=== PATIENT | male | born 1975 | race Two or more races ===

== ENCOUNTER 2016-04-14 14:36 | Inpatient (IN) | payer MEDICAID ==
[~2016-04-14] VITALS: Ht 172.7 cm; Wt 109.7 kg
[2016-04-14] MEDS ORDERED: ACETAMINOPHEN 325 MG TAB PO ONE (14:45)
[2016-04-14 16:00] LABS: Basophils # (auto) 0 uL; Basophils % (auto) 0.3 % (0.0-2.0); DEFINITIVE VIEW TRANSMISSION; Eosinophils # (auto) 0 uL; Eosinophils % (auto) 0.1 % (0.0-7.0); Hematocrit 41.6 % (41.0-53.0); Hemoglobin 13.3 g/dL (13.5-17.5); Lymphocytes # (auto) 1.8 uL; Lymphocytes % (auto) 19.7 % (10.0-50.0); Mean Corpuscular Hemoglobin 26.1 pg (28.0-32.0); Mean Corpuscular Hgb Conc. 31.9 g/dL (32.0-36.0); Mean Corpuscular Volume 81.7 fL (80.0-100.0); Mean Platelet Volume 9.1 fL (7.4-10.4); Monocytes % (auto) 10.7 % (0.0-12.0); Neutrophils # (auto) 6.5 uL; Neutrophils % (auto) 69.2 % (37.0-80.0); Platelet Count (auto) 242 10^3/uL (140-450); Red Cell Distribution Width 14.8 % (11.6-16.0); White Blood Cell 9.4 10^3/uL (4.4-10.8)
[2016-04-14 16:09] LABS: Albumin 2.6 g/dL (3.4-5.0); BUN/Creatinine Ratio 12.1; Potassium 4.2 mmol/L (3.5-5.1)
[2016-04-14 16:12] LABS: Bilirubin, Total 1.3 mg/dL (0.2-1.0); Total Protein 8.4 g/dL (6.4-8.2)
[2016-04-14 17:34] LABS: Hypochromia Slight; Platelet Estimate Adequate
[2016-04-15] MEDS ORDERED: SODIUM CHLORIDE 0.9% 1,000 ML IV ONE ×2 (03:30→05:30)
[2016-04-15] MEDS ORDERED: IPRATROPIUM BROM 0.5 MG/2.5ML INH SOL NEB ONE (03:45)
[2016-04-15] MEDS ORDERED: cefTRIAXone 1GM/50ML D5W 50 ML IV ONE (03:45)
[2016-04-15] MEDS ORDERED: PROMETHAZINE W/CODEINE 5 ML ORAL SYRUP PO ONE (03:45)
[2016-04-15] MEDS ORDERED: ALBUTEROL SULF 2.5 MG/0.5ML(0.5%) NEB SOLN NEB ONE (03:45)
[2016-04-15] MEDS ORDERED: LORazepam 0.5 MG TAB PO PRN (07:00)
[2016-04-15] MEDS: InsuLIN REG 1unit/0.01ml Soln (100units/ml) SC SCH ×4 (07:00→22:00)
[2016-04-15] MEDS ORDERED: NITROGLYCERIN 0.4 MG SL TAB SL PRN (07:00)
[2016-04-15] MEDS ORDERED: TEMAZEPAM 15 MG CAP PO PRN (07:00)
[2016-04-15] MEDS ORDERED: LACTULOSE 20Gm/30ML SOLN PO PRN ×2 (07:00)
[2016-04-15] MEDS ORDERED: PROMETHAZINE HCL 25 MG/ML 1ML IV PRN (07:00)
[2016-04-15] MEDS ORDERED: MORPHINE SULF INJ 2 MG/ML SYRINGE 1ML IV PRN ×2 (07:00)
[2016-04-15] MEDS ORDERED: ALBUTEROL SULF 2.5 MG/0.5ML(0.5%) NEB SOLN NEB PRN (07:00)
[2016-04-15] MEDS ORDERED: DEXTROSE (50%) 50ML SYRG IV PRN (07:00)
[2016-04-15] MEDS ORDERED: ACETAMINOPHEN 500 MG TAB PO PRN (07:00)
[2016-04-15] MEDS ORDERED: OSELTAMIVIR 75 MG CAP PO ONE (07:00)
[2016-04-15] MEDS ORDERED: HYDROcodone-ACET 5/325MG TAB PO PRN (07:00)
[2016-04-15] MEDS: ACCU-CHEK COMFORT CURVE STRIP VI SCH ×4 (07:28→22:00)
[2016-04-15 08:15] VITALS: BP 124/77
[2016-04-15 08:51] LABS: B-Type Natriuretic Peptide 7.5 pg/mL (0-100)
[2016-04-15 09:30] VITALS: BP 119/67
[2016-04-15 10:29] LABS: Temperature: 21.9 C (20.0-25.0)
[2016-04-15] MEDS: ENOXAPARIN SOD 40 MG/0.4 ML SYRINGE SC SCH (10:32)
[2016-04-15] MEDS: LEVOFLOXACIN 500MG 100 ML IV SCH (10:33)
[2016-04-15] MEDS: METOPROLOL TARTRATE 25 MG TAB PO SCH ×2 (10:33→22:03)
[2016-04-15] MEDS: ASPirin 81 mg TAB PO SCH (10:33)
[2016-04-15] MEDS: SODIUM CHLORIDE 0.9% 1,000 ML IV SCH ×2 (10:34→20:14)
[2016-04-15] MEDS ORDERED: ENOXAPARIN SOD 100 MG/1 ML SYRINGE SC ONE (12:45)
[2016-04-15] MEDS ORDERED: IOHEXOL 350 MG/ML 100ML IJ ONE (12:48)
[2016-04-15 13:00] VITALS: BP 108/63
[2016-04-15 13:15] VITALS: BP 108/63
[2016-04-15] MEDS: IPRATROPIUM BROM 0.5 MG/2.5ML INH SOL NEB SCH ×2 (15:32→18:33)
[2016-04-15] MEDS: ALBUTEROL SULF 2.5 MG/0.5ML(0.5%) NEB SOLN NEB SCH ×2 (15:33→18:33)
[2016-04-15 17:12] VITALS: BP 120/61
[2016-04-15 21:52] VITALS: BP 116/69
[2016-04-15] MEDS ORDERED: ATORVASTATIN 20 MG TAB PO SCH (22:00)
[2016-04-15] MEDS: OSELTAMIVIR 75 MG CAP PO SCH (22:04)
[2016-04-16] MEDS: ALBUTEROL SULF 2.5 MG/0.5ML(0.5%) NEB SOLN NEB SCH ×2 (00:35→07:20)
[2016-04-16] MEDS: IPRATROPIUM BROM 0.5 MG/2.5ML INH SOL NEB SCH ×3 (00:35→13:40)
[2016-04-16 05:00] VITALS: BP 113/63
[2016-04-16 05:54] LABS: Basophils # (auto) 0 uL; Basophils % (auto) 0.6 % (0.0-2.0); DEFINITIVE VIEW TRANSMISSION; Eosinophils # (auto) 0 uL; Eosinophils % (auto) 0.3 % (0.0-7.0); Hematocrit 37.8 % (41.0-53.0); Hemoglobin 11.8 g/dL (13.5-17.5); Lymphocytes # (auto) 1.6 uL; Lymphocytes % (auto) 23.7 % (10.0-50.0); Mean Corpuscular Hemoglobin 25.7 pg (28.0-32.0); Mean Corpuscular Hgb Conc. 31.1 g/dL (32.0-36.0); Mean Corpuscular Volume 82.7 fL (80.0-100.0); Mean Platelet Volume 9.1 fL (7.4-10.4); Monocytes # (auto) 0.8 uL; Monocytes % (auto) 12.8 % (0.0-12.0); Neutrophils # (auto) 4.1 uL; Neutrophils % (auto) 62.6 % (37.0-80.0); Platelet Count (auto) 233 10^3/uL (140-450); White Blood Cell 6.6 10^3/uL (4.4-10.8)
[2016-04-16 06:37] LABS: INR 2.5 (0.9-1.15); Prothrombin Time 25.8 sec (9.37-12.3)
[2016-04-16 06:45] LABS: Albumin 2.3 g/dL (3.4-5.0); BUN/Creatinine Ratio 12.5; Calcium 7.9 mg/dL (8.5-10.1); Magnesium 2.2 mg/dL (1.6-2.6); Potassium 4.4 mmol/L (3.5-5.1); Total Protein 7.6 g/dL (6.4-8.2)
[2016-04-16] MEDS: ACCU-CHEK COMFORT CURVE STRIP VI SCH ×2 (07:00→12:30)
[2016-04-16] MEDS: InsuLIN REG 1unit/0.01ml Soln (100units/ml) SC SCH ×2 (07:00→11:30)
[2016-04-16 07:05] LABS: B-Type Natriuretic Peptide 46.71 pg/mL (0-100)
[2016-04-16 07:09] LABS: Temperature: 22.2 C (20.0-25.0)
[2016-04-16 09:00] VITALS: BP 120/66
[2016-04-16] MEDS: OSELTAMIVIR 75 MG CAP PO SCH (10:00)
[2016-04-16] MEDS: LEVOFLOXACIN 500MG 100 ML IV SCH (10:39)
[2016-04-16] MEDS: ASPirin 81 mg TAB PO SCH (10:39)
[2016-04-16] MEDS: ENOXAPARIN SOD 40 MG/0.4 ML SYRINGE SC SCH (10:39)
[2016-04-16] MEDS: SODIUM CHLORIDE 0.9% 1,000 ML IV SCH (10:40)
[2016-04-16] MEDS: METOPROLOL TARTRATE 25 MG TAB PO SCH (10:40)
[2016-04-16 13:00] VITALS: BP 114/74
== END 2016-04-16 15:15 | disposition home or self-care (01) | DRG 144 ==
LOC: ER 14:49 → TELE 14:50 → EDBD 14:50 → TELE-E-ADS 04-15 08:39 → TELE-WESTW 04-15 09:27
PROVIDERS: ADMIT Internal Medicine; ATTEND Internal Medicine
DX: J20.9 Acute bronchitis, unspecified (principal); E11.65 Type 2 diabetes mellitus with hyperglycemia; K76.0 Fatty (change of) liver, not elsewhere classified; E66.01 Morbid (severe) obesity due to excess calories; E87.1 Hypo-osmolality and hyponatremia; Z82.3 Family history of stroke; Z83.3 Family history of diabetes mellitus; Z68.36 Body mass index [BMI] 36.0-36.9, adult
CPT/HCPCS: 36415; 71020; 71275; 76705; 80053; 80061; 82550; 82962; 83036; 83735; 83880; 84443; 84484; 85025; 85379; 85610; 85652; 86141; 87400; 93005; 93306; 94640; 96361; 96365; G0434; J0696; J1956